=== PATIENT | male | born 1970 | race African-American/Black ===

== ENCOUNTER 2017-04-30 13:24 | Emergency (ER) | payer MEDICAID, OTHER ==
[~2017-04-30] VITALS: Ht 182.9 cm; Wt 83.0 kg
[~2017-04-30 13:24] MED LIST: DILANTIN; SEROQUEL
[2017-04-30] MEDS ORDERED: ACETAMINOPHEN 500MG TABLET PO ONE (15:30)
[2017-04-30] MEDS ORDERED: IBUPROFEN 400MG TABLET PO ONE (15:30)
[2017-04-30 17:40] VITALS: BP 125/87
== END 2017-04-30 17:58 | disposition home or self-care (01) ==
LOC: ER 13:45
DX: S76.811A Strain of other specified muscles, fascia and tendons at thigh level, right thigh, initial encounter (principal); F31.9 Bipolar disorder, unspecified; I10 Essential (primary) hypertension; F20.9 Schizophrenia, unspecified; G40.909 Epilepsy, unspecified, not intractable, without status epilepticus; X58.XXXA Exposure to other specified factors, initial encounter; Y93.89 Activity, other specified; Y92.018 Other place in single-family (private) house as the place of occurrence of the external cause
CPT/HCPCS: 73502; 99284

== ENCOUNTER 2020-03-02 11:04 | Emergency (ER) | payer MEDICAID ==
[~2020-03-02] VITALS: Ht 180.3 cm; Wt 80.0 kg
[2020-03-02 15:08] LABS: BASOPHILS % 1.3 % (0.0-2.0); EOSINOPHILS % 2.1 % (0.0-5.0); HEMATOCRIT. 27.5 % (42.0-52.0); HEMOGLOBIN. 8.8 g/dL (14.0-18.0); LYMPHOCYTES % 35.4 % (20.0-50.0); MEAN CORPUSCULAR HEMOGLOBIN 25.9 pg (28.0-32.0); MEAN CORPUSCULAR VOLUME 81.4 fL (80.0-94.0); MEAN PLATELET VOLUME 9.2 fl (7.4-10.4); MONOCYTES % 9.6 % (2.0-8.0); NEUTROPHILS % 51.6 % (40.0-76.0); PLATELET 300 x1000/uL (130-400); RED BLOOD CELL COUNT 3.38 mill/uL (4.7-6.1); RED CELL DISTRIBUTION WIDTH 26.1 % (11.6-14.6)
[2020-03-02 15:16] LABS: CHLORIDE 111 mEq/L (98-107)
[2020-03-02 15:28] LABS: PLATELET ESTIMATE NORMAL
[2020-03-02] MEDS ORDERED: POTASSIUM CHLORIDE 20MEQ TABLET SR PO ONE (16:15)
[2020-03-02 16:54] VITALS: BP 145/91
== END 2020-03-02 16:57 | disposition home or self-care (01) ==
LOC: ER 11:04
DX: K76.9 Liver disease, unspecified (principal); E87.6 Hypokalemia; R73.9 Hyperglycemia, unspecified; D53.9 Nutritional anemia, unspecified
CPT/HCPCS: 36415; 71045; 80053; 82962; 85025; 93970; 99285

== ENCOUNTER 2020-09-18 07:47 | Inpatient (IN) | payer MEDICAID ==
[~2020-09-18] VITALS: Ht 180.3 cm; Wt 67.6 kg
[2020-09-18] MEDS ORDERED: VANCOMYCIN 1 G PREMIX 200 ML IV ONE (08:15)
[2020-09-18] MEDS ORDERED: PIPERACILLIN/TAZ 3.375G PREMIX 50 ML IV ONE (08:15)
[2020-09-18] MEDS ORDERED: SODIUM CHLORIDE 0.9% 1,000 ML IV ONE (08:15)
[2020-09-18 09:08] LABS: HEMATOCRIT. 34.7 % (42.0-52.0); HEMOGLOBIN. 11.2 g/dL (14.0-18.0); MEAN CORPUSCULAR HEMOGLOBIN 26.5 pg (28.0-32.0); MEAN CORPUSCULAR VOLUME 81.9 fL (80.0-94.0); MEAN PLATELET VOLUME 8.7 fl (7.4-10.4); PLATELET 89 x1000/uL (130-400); RED BLOOD CELL COUNT 4.23 mill/uL (4.7-6.1); RED CELL DISTRIBUTION WIDTH 25.7 % (11.6-14.6)
[2020-09-18 09:09] LABS: CLARITY URINE CLOUDY (CLEAR); COLOR URINE DARK YELLOW (YELLOW); KETONES URINE 3+ (NEGATIVE); LEUKOCYTE ESTERASE URINE NEGATIVE (NEGATIVE); NITRITE URINE NEGATIVE (NEGATIVE); OCCULT BLOOD URINE 2+ (NEGATIVE); PH URINE 5.5 (4.5-8.0); PROTEIN URINE 2+ (NEGATIVE); SPECIFIC GRAVITY URINE 1.025 (1.005-1.030)
[2020-09-18 09:13] LABS: PROTHROMBIN TIME 10.7 sec (9.6-11.0)
[2020-09-18 09:14] LABS: CHLORIDE 97 mEq/L (98-107)
[2020-09-18 09:17] LABS: ETHANOL BLOOD 163 mg/dL
[2020-09-18 09:27] LABS: CANNABINOID URINE SCREEN PRESUMTIVE POSITIVE (NEGATIVE); PHENCYCLIDINE URINE SCREEN NEGATIVE (NEGATIVE)
[2020-09-18 09:28] LABS: *AMPHETAMINES SCREEN URINE NEGATIVE (NEGATIVE); *BARBITURATES SCREEN URINE NEGATIVE (NEGATIVE); *BENZODIAZEPINES SCREEN URINE NEGATIVE (NEGATIVE); *COCAINE SCREEN URINE PRESUMTIVE POSITIVE (NEGATIVE); METHADONE URINE SCREEN NEGATIVE (NEGATIVE); OPIATES URINE SCREEN NEGATIVE (NEGATIVE)
[2020-09-18] MEDS ORDERED: MORPHINE SULFATE 4 MG/ML CPJ (NOT FOR IM USE) IV ONE (10:00)
[2020-09-18 10:13] LABS: PLATELET ESTIMATE DECREASED
[2020-09-18] MEDS ORDERED: IOHEXOL-300 100 ML BOTTLE ONE (12:55)
[2020-09-18] MEDS ORDERED: PHENYTOIN SODIUM EXTENDED 100MG CAPSULE PO ONE (14:00)
[2020-09-18] MEDS ORDERED: ACETAMINOPHEN 325MG TABLET PO PRN ×2 (14:45)
[2020-09-18] MEDS ORDERED: ZOLPIDEM TARTRATE 5MG TABLET PO PRN (14:45)
[2020-09-18] MEDS ORDERED: SODIUM CHLORIDE 0.9% 1000ML BAG (SEPSIS BOLUS) IV NR (14:45)
[2020-09-18] MEDS ORDERED: HALOPERIDOL LACTATE 5MG/ML VIAL IM PRN (14:45)
[2020-09-18] MEDS ORDERED: CLONIDINE 0.1MG TABLET PO PRN (14:45)
[2020-09-18] MEDS ORDERED: GUAIFENESIN 200MG/10ML SUGAR FREE UDC PO PRN (14:45)
[2020-09-18] MEDS ORDERED: IPRATROPIUM/ALBUTEROL 0.5-3(2.5)MG/3ML NEB NEB PRN (14:45)
[2020-09-18] MEDS ORDERED: DOCUSATE SODIUM 100MG CAPSULE PO PRN (14:45)
[2020-09-18] MEDS ORDERED: NITROGLYCERIN 0.4MG TABLET SL SL PRN (14:45)
[2020-09-18] MEDS ORDERED: LORAZEPAM 2MG/ML CPJ IV PRN (14:45)
[2020-09-18] MEDS ORDERED: MAGNESIUM/ALUMINUM HYDROXIDE/SIMETHICONE 30ML UDC PO PRN (14:45)
[2020-09-18] MEDS ORDERED: KETOROLAC 15MG/ML VIAL IV PRN (14:45)
[2020-09-18] MEDS ORDERED: ONDANSETRON HCL 4MG/2ML INJ IV PRN (14:45)
[2020-09-18] MEDS ORDERED: CEFTRIAXONE 1 G PREMIX 50 ML IV SCH (15:00)
[2020-09-18 15:01] LABS: TOTAL IRON BINDING CAPACITY 313 ug/dL (250-450)
[2020-09-18 15:02] LABS: LDL CHOLESTEROL 143 mg/dL (5-100)
[2020-09-18 15:04] LABS: HDL CHOLESTEROL 71 mg/dL (40-59)
[2020-09-18 15:21] LABS: FOLIC ACID (FOLATE) SERUM 4.6 ng/mL (>5.38)
[2020-09-18] MEDS ORDERED: LEVOFLOXACIN 500MG PREMIX 100 ML IV SCH (16:00)
[2020-09-18] MEDS ORDERED: ENOXAPARIN 40MG/0.4ML SYR SUBCUT SCH (16:00)
[2020-09-18] MEDS ORDERED: MVI, ADULT NO.1 10 ML, FOLIC ACID 1 MG, THIAMINE HCL 100 MG in SODIUM CHLORIDE 0.9% 1,0... IV NR (17:00)
[2020-09-18 20:00] VITALS: BP 164/91
[2020-09-18] MEDS: ASCORBIC ACID 500 MG TABLET PO SCH (21:33)
[2020-09-18] MEDS: FAMOTIDINE 20MG TABLET PO SCH (21:34)
[2020-09-18] MEDS: PHENYTOIN SODIUM EXTENDED 100MG CAPSULE PO SCH (21:34)
[2020-09-18 23:00] VITALS: BP 164/91
[2020-09-18 23:52] LABS: CREATINE KINASE MB FRACTION 10.1 ng/mL (0.5-3.6)
[2020-09-19 00:31] VITALS: BP 143/94
[2020-09-19 04:00] VITALS: BP 142/89
[2020-09-19 05:56] LABS: CHLORIDE 99 mEq/L (98-107)
[2020-09-19 06:11] LABS: CREATINE KINASE MB FRACTION 12.2 ng/mL (0.5-3.6)
[2020-09-19 06:19] LABS: CREATINE KINASE 1529 IU/L (39-308)
[2020-09-19 06:38] LABS: BASOPHILS % 0.4 % (0.0-2.0); EOSINOPHILS % 1.5 % (0.0-5.0); HEMATOCRIT. 30.1 % (42.0-52.0); HEMOGLOBIN. 9.4 g/dL (14.0-18.0); LYMPHOCYTES % 22.7 % (20.0-50.0); MEAN CORPUSCULAR VOLUME 82.9 fL (80.0-94.0); MEAN PLATELET VOLUME 9.1 fl (7.4-10.4); MONOCYTES % 9.9 % (2.0-8.0); NEUTROPHILS % 65.5 % (40.0-76.0); PLATELET 61 x1000/uL (130-400); RED BLOOD CELL COUNT 3.63 mill/uL (4.7-6.1); RED CELL DISTRIBUTION WIDTH 24.9 % (11.6-14.6)
[2020-09-19 08:00] VITALS: BP 133/85
[2020-09-19] MEDS: FAMOTIDINE 20MG TABLET PO SCH ×2 (09:37→21:00)
[2020-09-19] MEDS: ZINC SULFATE 220 MG ( 50 ) CAPSULE PO SCH (09:37)
[2020-09-19] MEDS: CHOLECALCIFEROL (D3) 1000 UNIT TABLET PO SCH (09:37)
[2020-09-19] MEDS: ASCORBIC ACID 500 MG TABLET PO SCH ×2 (09:37→21:00)
[2020-09-19 12:00] VITALS: BP 128/85
[2020-09-19 16:00] VITALS: BP_SYST 124; BP_SYST 132; BP_DIAS 68; BP_DIAS 83
[2020-09-19] MEDS: CEFTRIAXONE 1,000 MG in DEXTROSE 5% WATER 50 ML IV SCH (16:24)
[2020-09-19] MEDS: LEVOFLOXACIN 500MG PREMIX 100 ML IV SCH (18:13)
[2020-09-19 20:00] VITALS: BP 118/83
[2020-09-19] MEDS: HALOPERIDOL LACTATE 5MG/ML VIAL IM PRN (20:38)
[2020-09-19] MEDS: LORAZEPAM 2MG/ML CPJ IM PRN (20:38)
[2020-09-19] MEDS: PHENYTOIN SODIUM EXTENDED 100MG CAPSULE PO SCH (21:00)
[2020-09-20 00:44] VITALS: BP 140/90
[2020-09-20] MEDS: LORAZEPAM 2MG/ML CPJ IM PRN ×2 (01:21→01:57)
[2020-09-20] MEDS: HALOPERIDOL LACTATE 5MG/ML VIAL IM PRN ×2 (01:22→01:57)
[2020-09-20 04:00] VITALS: BP 100/69
[2020-09-20 08:00] VITALS: BP 110/63
[2020-09-20] MEDS: FAMOTIDINE 20MG TABLET PO SCH ×2 (09:13→20:41)
[2020-09-20] MEDS: ASCORBIC ACID 500 MG TABLET PO SCH ×2 (09:13→20:41)
[2020-09-20] MEDS: CHOLECALCIFEROL (D3) 1000 UNIT TABLET PO SCH (09:13)
[2020-09-20] MEDS: ZINC SULFATE 220 MG ( 50 ) CAPSULE PO SCH (09:13)
[2020-09-20 12:00] VITALS: BP 100/68
[2020-09-20 16:00] VITALS: BP 100/66
[2020-09-20] MEDS: CEFTRIAXONE 1,000 MG in DEXTROSE 5% WATER 50 ML IV SCH (18:53)
[2020-09-20] MEDS: LEVOFLOXACIN 500MG PREMIX 100 ML IV SCH (19:47)
[2020-09-20 20:26] VITALS: BP 105/60
[2020-09-20] MEDS: PHENYTOIN SODIUM EXTENDED 100MG CAPSULE PO SCH (20:42)
[2020-09-21] VITALS: BP 94/46
[2020-09-21 04:00] VITALS: BP 96/71
[2020-09-21 08:00] VITALS: BP 93/65
[2020-09-21] MEDS: ASCORBIC ACID 500 MG TABLET PO SCH (09:09)
[2020-09-21] MEDS: FAMOTIDINE 20MG TABLET PO SCH (09:09)
[2020-09-21] MEDS: ZINC SULFATE 220 MG ( 50 ) CAPSULE PO SCH (09:09)
[2020-09-21] MEDS: CHOLECALCIFEROL (D3) 1000 UNIT TABLET PO SCH (09:09)
== END 2020-09-21 11:15 | disposition home or self-care (01) | DRG 720 ==
LOC: ER 07:54 → 6WST 09:05 → ENRESERV 19:58
PROVIDERS: ADMIT Internal Medicine; ATTEND Internal Medicine
DX: A41.9 Sepsis, unspecified organism (principal); R65.21 Severe sepsis with septic shock; G92 Toxic encephalopathy; D69.59 Other secondary thrombocytopenia; E87.2 Acidosis; E83.51 Hypocalcemia; D69.6 Thrombocytopenia, unspecified; E87.1 Hypo-osmolality and hyponatremia; F20.9 Schizophrenia, unspecified; F31.9 Bipolar disorder, unspecified; F10.10 Alcohol abuse, uncomplicated; D63.8 Anemia in other chronic diseases classified elsewhere; I10 Essential (primary) hypertension; G40.909 Epilepsy, unspecified, not intractable, without status epilepticus; Z79.899 Other long term (current) drug therapy
CPT/HCPCS: 36415; 71045; 74177; 80053; 80061; 80185; 80305; 80320; 81003; 82550; 82553; 82607; 82746; 82962; 83036; 83540; 83550; 83605; 83735; 84100; 84145; 84484; 85025; 86850; 86900; 93005; 93306; 99291; J0696; J1630; J1650; J1956; J2060; J2270; J2405; J2543; J3370; J3411; J3490; J7030; J7060; Q9967; G0480

== ENCOUNTER 2021-02-06 10:00 | Emergency (ER) | payer MEDICAID ==
[~2021-02-06] VITALS: Ht 180.3 cm; Wt 88.0 kg
[~2021-02-06 10:00] MED LIST changes: +KEPP500 MT
[2021-02-06 10:50] VITALS: BP 134/62
[2021-02-06 11:19] LABS: HEMATOCRIT. 28.1 % (42.0-52.0); HEMOGLOBIN. 8.8 g/dL (14.0-18.0); MEAN CORPUSCULAR HEMOGLOBIN 24.9 pg (28.0-32.0); MEAN CORPUSCULAR VOLUME 79.3 fL (80.0-94.0); MEAN PLATELET VOLUME 8.2 fl (7.4-10.4); PLATELET 292 x1000/uL (130-400); RED BLOOD CELL COUNT 3.54 mill/uL (4.7-6.1); RED CELL DISTRIBUTION WIDTH 20.7 % (11.6-14.6)
[2021-02-06 11:24] LABS: CHLORIDE 108 mEq/L (98-107)
[2021-02-06 12:46] LABS: NUCLEATED RED BLOOD CELLS 2 /100 WBC; PLATELET ESTIMATE NORMAL
== END 2021-02-06 14:01 | disposition home or self-care (01) ==
LOC: ER 10:00
DX: Z48.00 Encounter for change or removal of nonsurgical wound dressing (principal); M79.602 Pain in left arm; D50.9 Iron deficiency anemia, unspecified; D72.819 Decreased white blood cell count, unspecified; I10 Essential (primary) hypertension; G40.909 Epilepsy, unspecified, not intractable, without status epilepticus; F14.10 Cocaine abuse, uncomplicated; F12.90 Cannabis use, unspecified, uncomplicated
CPT/HCPCS: 36415; 80053; 85025; 99283

== ENCOUNTER 2021-10-08 10:43 | Emergency (ER) | payer MEDICAID ==
[~2021-10-08] VITALS: Ht 190.5 cm; Wt 100.0 kg
[2021-10-08] MEDS ORDERED: SODIUM CHLORIDE 0.9% 1,000 ML IV ONE (11:15)
[2021-10-08] MEDS ORDERED: LEVETIRACETAM 1000MG PREMIX 100 ML IV ONE (11:15)
[2021-10-08 11:33] LABS: CHLORIDE 104 mEq/L (98-107)
[2021-10-08 11:40] LABS: ETHANOL BLOOD 38 mg/dL
[2021-10-08] MEDS ORDERED: ACETAMINOPHEN 325MG TABLET PO ONE (12:00)
[2021-10-08 12:25] LABS: BASOPHILS % 0.6 % (0.0-2.0); EOSINOPHILS % 2.6 % (0.0-5.0); HEMATOCRIT. 34.8 % (42.0-52.0); HEMOGLOBIN. 11.6 g/dL (14.0-18.0); LYMPHOCYTES % 23.4 % (20.0-50.0); MEAN CORPUSCULAR VOLUME 84.3 fL (80.0-94.0); MEAN PLATELET VOLUME 8.1 fl (7.4-10.4); MONOCYTES % 8.5 % (2.0-8.0); NEUTROPHILS % 64.9 % (40.0-76.0); PLATELET 202 x1000/uL (130-400); RED BLOOD CELL COUNT 4.13 mill/uL (4.7-6.1); RED CELL DISTRIBUTION WIDTH 22.7 % (11.6-14.6)
[2021-10-08 13:04] LABS: PLATELET ESTIMATE NORMAL
[2021-10-08] MEDS ORDERED: KEPP500 MT (13:57)
[2021-10-08 14:24] VITALS: BP 143/93
== END 2021-10-08 14:26 | disposition home or self-care (01) ==
LOC: ER 11:03
DX: G40.909 Epilepsy, unspecified, not intractable, without status epilepticus (principal); F10.229 Alcohol dependence with intoxication, unspecified; Y90.0 Blood alcohol level of less than 20 mg/100 ml; I10 Essential (primary) hypertension; F17.290 Nicotine dependence, other tobacco product, uncomplicated
CPT/HCPCS: 36415; 70450; 80053; 80320; 82962; 85025; 93005; 96365; 99285; 99406; J1953; J7030; G0480